=== PATIENT | female | born 1960 | race Caucasian/White ===

== ENCOUNTER 2019-04-29 13:18 | Inpatient (IN) ==
[2019-04-29 14:30] LABS: Basophils # (auto) 0.01 K/uL (0-0.2); Basophils % (auto) 0.2 %; Eosinophils # (auto) 0.11 K/uL (0-0.5); Eosinophils % (auto) 2.3 %; Hematocrit (blood only) 25.6 % (37-47); Hemoglobin 8.6 g/dL (12.0-16.0); Immature Granulocytes # (auto) 0.01 K/uL (0.00-0.02); Immature Granulocytes % (auto) 0.2 %; Lymphocytes % (auto) 14.4 %; Mean Corpuscular Hgb Conc 33.6 g/dL (32-36); Mean Corpuscular Volume 102.8 fL (80-100); Mean Platelet Volume 9.1 fL (7.4-10.4); Monocytes # (auto) 0.31 K/uL (0.11-0.59); Monocytes % (auto) 6.4 %; Neutrophils # (auto) 3.71 K/uL (1.4-6.5); Neutrophils % (auto) 76.5 %; Platelet Count 118 K/uL (130-400); RDW Coefficient of Variation 14.9 % (11.5-14.5); RDW Standard Deviation 55.4 fL (36.4-46.3); Red Blood Count 2.49 M/uL (4.2-5.4); White Blood Count 4.85 K/uL (4.8-10.8)
[2019-04-29 14:45] LABS: Est GFR (African American) 56.8; Potassium 4.1 mmol/L (3.5-5.1)
[2019-04-29 14:46] LABS: Albumin Level 3.5 gm/dl (3.4-5.0); BUN Creatinine Ratio 26.3 (10-20); Calcium 9.6 mg/dl (8.5-10.1); Creatinine Clr Calc Pharmacy 66.1 ml/min
[2019-04-29 14:48] LABS: Albumin Globulin Ratio 1.2 (0.9-2); Bilirubin,Total 0.3 mg/dl (0.2-1); Total Protein 6.5 gm/dl (6.4-8.2)
[2019-04-29 15:05] LABS: INR 1.1 (0.9-1.1); Partial Thromboplastin Ratio 1.1; Partial Thromboplastin Time 28.5 Seconds (21.0-31.0)
--- NOTE | 2019-04-29 15:33 | Ultrasound Report ---
ULTRASOUND BILATERAL LOWER EXTREMITY VENOUS CLINICAL HISTORY: Leg pain. COMPARISON STUDY: No priors. TECHNIQUE: Real-time, grayscale, and color Doppler sonography of the deep veins of the right and left lower extremity was performed from the inguinal crease to the calf. Compression and augmentation wer e utilized. FINDINGS: Right lower extremity: There is nearly occlusive deep venous thrombosis identified in the right commo n femoral vein. The superficial femoral and popliteal veins are patent and normally compressible. The greater saphenous vein and the profunda femoris vein at the junction with the common femoral vein ar e clear. The visualized calf veins are patent. Left lower extremity: There is no sonographic evidence of left lower extremity deep venous thrombosis . The common femoral, superficial femoral, and popliteal veins are patent and normally compressible. The greater saphenous vein and the profunda femoris vein at the junction with the common femoral vein are clear. The visualized calf veins are patent. IMPRESSION: 1. There is nearly occlusive deep venous thrombosis identified in the right common femoral vein. 2. The remaining deep veins of the right lower extremity are clear. 3. There is no sonographic evidence of deep venous thrombosis in the left lower extremity. Electronically signed by: Tra Robertson M.D. 04/29/2019 3:32 PM
--- NOTE | 2019-04-29 17:01 | History & Physical Report ---
Date of Service April 29, 2019 Assessment & Plan (1) DVT of proximal leg (deep vein thrombosis): This is a 58-year-old female who has a significant past medical history of stage IIIa grade 2 endometrial cancer status post TAHBSO 04/07/18 and chemo/XRT therapy ending 12/2018, HTN, HLD, Depression, CKD 3, pancytopenia who presents to [facility] ED secondary to abnormal CT scan. Outpt CT: A long filling defect in the mid to distal right external iliac vein with mild dilation of the vein extending to right common femoral vein and proximal deep femoral vein, concerning for deep venous thrombosis. Circumaortic left renal vein (In case an IVC filter is placed). admit to med/surg Risks and benefits were discussed regarding treatment options Initiate Lovenox 120mg Sq Q12hr - discussed with Dr. Tanner along with pt hematology Dr. Roth [facility] Dr. Tanner recommends checking Xa level in 1 week to see if level accumulating. She recommends if high consider reducing dosage of lovenox patient will need close follow up with her [employer] Dr. Roth to deter mine longterm treatment options Monitor H/H and PLT count closely given significant pancytopenia (2) Pancytopenia: secondary to chemotherapy pt off chemotherapy last given 12/2018 last transfusion of PRBC 6 weeks ago hx of 22 units of PRBC in past year secondary to pancytopenia follow H/H (3) HTN (hypertension): continue outpatient lisinopril/hctz Disposition: D/C to home when able Follow up: PCP Dr. Champion along with follow up [employer] Dr. Roth [facility] Patient was seen and examined in collaboration with Dr. Dobbins, please see addendum History of Present Illness Chief Complaint: Abnormal CT scan Primary Care Provider: Sakshi Lucia DO This is a 58-year-old female who has a significant past medical history of stage IIIa grade 2 endometrial cancer status post TAHBSO 04/07/18 and chemo/XRT therapy ending 12/2018, HTN, HLD, Depression, CKD 3, pancytopenia who presents to [facility] ED secondary to abnormal CT scan. Patient underwent 3 cycles of chemotherapy and developed febrile neutropenia along with severe anemia that required hospitalization at [place]. Since then she has had additional cycles of chemotherapy along with 25 pelvic radiation treatments. Her chemo ended 12/2018 due to complications. Today patient presented for outpatient surveillance CT scan of abdomen pelvis and chest. Findings consistent with mild filling defect in the mid to distal right external iliac vein with mild dilation of the vein extending to the right common femoral vein and proximal deep femoral vein concerning for DVT. Given these findings it was recommended to seek ED for evaluation and treatment. Patient is from [facility] and is currently in [place] visiting mother who was on hospice. She has noticed over the past week some increasing right ankle swelling and slight warmth but otherwise denies pain. Feels in her normal state of health. Denies fever, chills, sweats, lightheadedness, dizziness, chest pain, shortness of breath, hemoptysis, cough, nausea, vomiting, abdominal pain, change in bowel or urinary habits. Patient has developed pancytopenia secondary to chemotherapy. She has undergone 22 transfusions since June 2018. She denies any bleeding, hematochezia, melena. Pt states she has been traveling back and forth from [facility] to here because of visiting her mother. Denies Tobacco use. Allergies Allergy/AdvReac Type Severity Reaction Status Date / Time No Known Allergies Allergy Unverified 04/29/19 13:34 Home Medications Home Medications Medication Instructions Recorded Confirmed Type cyanocobalamin (vitamin B-12) 1,000 mcg PO QAM 04/29/19 04/29/19 History [Vitamin B-12] escitalopram oxalate 5 mg PO HS 04/29/19 04/29/19 History folic acid 1 mg PO QAM 04/29/19 04/29/19 History lisinopril-hydrochlorothiazide 2 tab PO QAM 04/29/19 04/29/19 History Past Med/Surg History Family History Mother Breast cancer Uterine cancer Father Coronary heart disease, Onset Age: 63 Diabetes Social History Preferred Language: Mongolian Communication Ability: Effective Beliefs That Will Affect Care: None marital status: / Current Living Situation: Family Current Living Situation Comment: daughter Other Information That Helps Us Care for You: No Feels Safe at Home: Yes Safety Concerns: Feels Safe At This Time Smoking Status: Never smoker Hx Alcohol Use: No Hx Substance Use: No Review of Systems Review of Systems: As noted per HPI, 10 systems reviewed and negative unless noted above. Physical Exam Physical Exam: Gen: WD/WN, F, morbidly obese, NAD, sitting up in bed, pleasant, conversing easily Head: Normocephalic, Atraumatic Eyes: Sclera normal, no conjunctival injection, PERRLA, EOMI ENT: Gross hearing intact, normal pharynx, mucous membranes moist Neck: supple, no adenopathy, No JVD, no bruit, Resp: Clear to auscultation b/l, no wheeze, rales, rhonchi. Normal insp/exp effort, no accessory muscle use CV: Regular rate, regular rhythm, no murmur, rub, gallop, or ectopy Abd: +BS x 4, obese abdomen, soft, nontender, nondistended Musculoskeletal: moves extremities active rom x 4, strength intact, good endo tech strength Extremities: Right lower extremity pretibial and ankle edema with surrounding erythema, warmth. No pain to palpation. No edema to left lower extremity. Bilateral pulses +2 and equal. Skin: warm, moist, no rash, negative turgor, cap refill < 2sec Neuro: Alert and oriented x 3, speech normal, good mood/affect, cran nerve 2-12 intact grossly : deferred Results & Data Vital Signs (Past 12 Hours) Vital Signs Temp Pulse Pulse Resp BP BP Pulse Ox 04/29/19 15:37 75 142/61 H 97 04/29/19 13:21 36.7 C 87 20 184/103 H 98 Laboratory Results Short CBC 04/29/19 Range/Units 13:55 WBC 4.85 (4.8-10.8) K/uL Hgb 8.6 L (12.0-16.0) g/dL Hct 25.6 L (37-47) % Plt Count 118 L (130-400) K/uL BMP 04/29/19 13:55 Sodium 143 Potassium 4.1 Chloride 111 H Carbon Dioxide 25 BUN 32 H Creatinine 1.23 H Glucose 94 Calcium 9.6 Liver Function 04/29/19 Range/Units 13:55 Total Bilirubin 0.3 (0.2-1) mg/dl AST 14 L (15-37) U/L ALT 25 (12-78) U/L Alkaline Phosphatase 93 (45-117) U/L Albumin 3.5 (3.4-5.0) gm/dl Diagnostic Findings CT Abd/Pelvis/Chest: IMPRESSION Chest: 1. A tiny pulmonary nodule in the lateral right upper lobe, not seen on the prior exam (2.5 mm axial image 36). Continued attention on the follow up studies suggested. 2. No enlarged thoracic lymph nodes. Abdomen/pelvis: 1. No findings to suggest metastatic disease in the abdomen or pelvis. 2. A long filling defect in the mid to distal right external iliac vein with mild dilation of the vein extending to right common femoral vein and proximal deep femoral vein, concerning for deep venous thrombosis. Circumaortic left renal vein (In case an IVC filter is placed). 3. Mild hepatomegaly and mild hepatic steatosis, stable. Mild splenomegaly, stable. 4. Other incidental findings as detailed above. RLE US: IMPRESSION: 1. There is nearly occlusive deep venous thrombosis identified in the right common femoral vein. 2. The remaining deep veins of the right lower extremity are clear. 3. There is no sonographic evidence of deep venous thrombosis in the left lower extremity. Code Status & VTE Plan Code Status Full Code VTE Prophylaxis Plan VTE Prophylaxis will be ordered: Yes Supervising Physician Co-Signing Physician Notes Patient is a 58-year-old female with history of endometrial cancer status post chemo and radiation therapy, CKD and other problems presents for evaluation and management of an abnormal CT abdomen pelvis which was done as outpatient. Patient was found to have mild filling defect in the mid to distal right external iliac origin with mild dilatation of the vein extending to the right common femoral vein and proximal deep femoral vein. Venous Doppler showed nearly occlusive deep vein thrombosis in the right common femoral vein. She reports associated mild swelling, erythema of the right lower extremity but ryan es any pain, fever. Also denies any chest pain, shortness of breath, dizziness, abdominal pain. Patient admits to traveling recently to visit her mother who is under hospice care currently. On exam patient is morbidly obese, no distress, normocephalic atraumatic, lungs are clear to auscultation, S1-S2, no murmur, abdomen soft nontender, grossly normal neurological focal deficits, right lower extremity swelling, erythema noted. Discussed with patient's oncologist Dr. Roth and Dr. Tanner. Patient denies any bleeding issues. Patient will be anticoagulated with therapeutic Lovenox. Monitor renal function. Plan to check Xa level in 1 week and consider adjusting Lovenox dose based on Xa levels. Monitor CBC given anemia, thrombocytopenia and multiple transfusions (which she attributes to chemotherapy but denies any bleeding issues) in the past. I personally reviewed the record. Patient is interviewed and examined at bedside. Patient's care is coordinated with Michelle Lloyd PA-C. Please refer to the documentation above for details of patient's presentation and for discussion of other issues.
--- NOTE | 2019-04-29 17:13 | Emergency Department Note ---
Entered by Elisha Becerril acting as a scribe for Ranjit Knapp MD History of Present Illness General Chief complaint: Leg Injury/Pain Stated complaint: BLOOD CLOT IN RIGHT LEG Source: patient Limitations: no limitations History of Present Illness Provider complaint: Blood clot in right leg Onset (ago): day(s) Location: lower extremity and right Radiation: non-radiation Pain Consistency: + constant Associated symptoms: + denies other symptoms; no chest pain and no shortness of breath The patient is a 58 year old female who presents to the ED with abnormal imaging done yesterday. She reports that she got her results from a CT scan done that showed a filling defect in the mid-distal right external iliac vein extending into the right leg. She reports a history of uterine cancer and states that she had the CT done yesterday as a follow-up scan for her history of cancer. The patient states that she is no longer on chemotherapy. She states that the DVT was found incidentally. She states that she did have a hysterectomy 1 year ago. The patient denies any bleeding issues, abdominal pain, chest pain, leg pain, and shortness of breath. She also denies recent long travel or surgeries and states that she does not smoke. The patient states that she had blood work done at [facility] yesterday and was reported to have a platelet count of 138,000 so reports that she does have some bruising. She denies a history of clots. Home Medications Home Medications Medication Instructions Recorded Confirmed Type cyanocobalamin (vitamin B-12) 1,000 mcg PO QAM 04/29/19 04/29/19 History [Vitamin B-12] escitalopram oxalate 5 mg PO HS 04/29/19 04/29/19 History folic acid 1 mg PO QAM 04/29/19 04/29/19 History lisinopril-hydrochlorothiazide 2 tab PO QAM 04/29/19 04/29/19 History Allergies Allergy/AdvReac Type Severity Reaction Status Date / Time No Known Allergies Allergy Unverified 04/29/19 13:34 Past Med/Surg History Social History Feels Safe at Home: Yes Smoking Status: Never smoker Review of Systems See HPI for pertinent positives & negatives. and A total of 10 systems reviewed and were otherwise negative Physical Exam Vital Signs Vital Signs - 24 hr 04/29/19 13:21 04/29/19 15:37 Temperature 36.7 C Temperature Source Oral Sepsis Recent Fever Within 48 Hours No Sepsis New/Unexplained Change in Mental Status No Sepsis Action Taken by Nursing No Action Required Pulse Rate 87 Pulse Rate [Right Finger] 75 Pulse Rhythm [Right Finger] Regular Pulse Strength [Right Finger] Normal Respiratory Rate 20 Respiratory Effort / Characteristics Non-Labored Spontaneous Respiratory Depth Normal Normal Respiratory Pattern Regular Blood Pressure 184/103 H Blood Pressure [Left Arm] 142/61 H Blood Pressure Mean 130 Blood Pressure Mean [Left Arm] 88 Blood Pressure Position [Left Arm] Lying Pulse Oximetry 98 97 Oxygen Delivery Method Room Air Room Air Constitutional: Vital signs reviewed. Eyes: Pupils are equal round reactive to light. Conjunctiva are noninjected. ENT: Pharynx is clear without erythema or exudate. Mucous membranes are moist. Neck supple without meningeal signs. Respiratory: Clear to auscultation bilaterally. Breath sounds are equal bilaterally. Cardiovascular: Regular rate and rhythm. No rubs or gallops. GI: Soft, nondistended and nontender. Bowel sounds are present. Musculoskeletal: Edema to her right leg which is larger than the left. No lower extremity tenderness. Integumentary: No cyanosis. Neurological: The patient is awake and alert. No focal deficits. Psychiatric: Normal affect. Course 1340: The patient was evaluated in room C10. A history and physical were performed. 1545: I discussed the patient's case with Michelle Archer, admitting to Dr. Dobbins, who will evaluate the patient for further management. 1548: I updated the patient who verbalized agreement and understanding of the treatment plan. Consultations Consultation #1: Michelle Archer Time: 15:45 Medical Decision Making Differential Diagnosis Differentials include DVT, carcinoma, hypercoagulable state, thrombocytopenia, and anemia. Medical Records Attestation: I reviewed the patient's medical records. Home Medications Current Medication List: was personally reviewed by me Laboratory Data Attestation: I reviewed the patient's lab results. Result diagrams: 04/29/19 13:55 04/29/19 13:55 Lab Results 04/29/19 04/29/19 04/29/19 Range/Units 13:55 13:55 13:55 WBC 4.85 (4.8-10.8) K/uL RBC 2.49 L (4.2-5.4) M/uL Hgb 8.6 L (12.0-16.0) g/dL Hct 25.6 L (37-47) % MCV 102.8 H (80-100) fL MCH 34.5 H (25-34) pg MCHC 33.6 (32-36) g/dL RDW Std Deviation 55.4 H (36.4-46.3) fL RDW Coeff of Shukri 14.9 H (11.5-14.5) % Plt Count 118 L (130-400) K/uL MPV 9.1 (7.4-10.4) fL Immature Gran % (Auto) 0.2 % Neut % (Auto) 76.5 % Lymph % (Auto) 14.4 % [place] % (Auto) 6.4 % Eos % (Auto) 2.3 % Baso % (Auto) 0.2 % Immature Gran # (Auto) 0.01 (0.00-0.02) K/uL Neut # (Auto) 3.71 (1.4-6.5) K/uL Lymph # (Auto) 0.70 L (1.2-3.4) K/uL [place] # (Auto) 0.31 (0.11-0.59) K/uL Eos # (Auto) 0.11 (0-0.5) K/uL Baso # (Auto) 0.01 (0-0.2) K/uL PT 11.0 (9.0-12.0) Seconds INR 1.1 (0.9-1.1) APTT 28.5 (21.0-31.0) Seconds PTT Ratio 1.1 Sodium 143 (136-145) mmol/L Potassium 4.1 (3.5-5.1) mmol/L Chloride 111 H (98-107) mmol/L Carbon Dioxide 25 (21-32) mmol/L Anion Gap 8.0 (3-11) BUN 32 H (7-18) mg/dl Creatinine 1.23 H (0.6-1.2) mg/dl Est Cr Clr Drug Dosing 66.1 ml/min Est GFR ( Amer) 56.8 Est GFR (Non-Af Amer) 49.0 BUN/Creatinine Ratio 26.3 H (10-20) Glucose 94 (70-99) mg/dl Calcium 9.6 (8.5-10.1) mg/dl Total Bilirubin 0.3 (0.2-1) mg/dl AST 14 L (15-37) U/L ALT 25 (12-78) U/L Alkaline Phosphatase 93 (45-117) U/L Total Protein 6.5 (6.4-8.2) gm/dl Albumin 3.5 (3.4-5.0) gm/dl Globulin 3.0 (2.5-4.0) gm/dl Albumin/Globulin Ratio 1.2 (0.9-2) Imaging Data Radiologist's Impression: Radiology results as stated below per my review and the radiologist's interpretation: ULTRASOUND BILATERAL LOWER EXTREMITY VENOUS CLINICAL HISTORY: Leg pain. COMPARISON STUDY: No priors. TECHNIQUE: Real-time, grayscale, and color Doppler sonography of the deep veins of the right and left lower extremity was performed from the inguinal crease to the calf. Compression and augmentation were utilized. FINDINGS: Right lower extremity: There is nearly occlusive deep venous thrombosis identified in the right common femoral vein. The superficial femoral and popliteal veins are patent and normally compressible. The greater saphenous vein and the profunda femoris vein at the junction with the common femoral vein are clear. The visualized calf veins are patent. Left lower extremity: There is no sonographic evidence of left lower extremity deep venous thrombosis. The common femoral, superficial femoral, and popliteal veins are patent and normally compressible. The greater saphenous vein and the profunda femoris vein at the junction with the common femoral vein are clear. The visualized calf veins are patent. IMPRESSION: 1. There is nearly occlusive deep venous thrombosis identified in the right common femoral vein. 2. The remaining deep veins of the right lower extremity are clear. 3. There is no sonographic evidence of deep venous thrombosis in the left lower extremity. Electronically signed by: Tra Robertson M.D. 04/29/2019 3:32 PM Blood Pressure Blood Pressure Findings: Elevated blood pressure Blood Pressure Disposition: Referred to patients primary care provider DRE Narrative I did evaluate the patient as noted above. IV access was established. 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 . I did order and review the patient's blood work as noted in the electronic medical record. She has a hemoglobin 8.6. She does state that on Friday her hemoglobin was over 9. Her platelet count is 118. I did order a Doppler ultrasound of the lower extremities. I did review the images myself as well as the radiology report as described above. She does have a near occlusive right common femoral vein DVT. I did discuss the test results with the patient. I did recommend hospitalization. I did feel an IVC filter should be a consideration. I did discuss the case with the hospitalist and onsite case manager. Impression & Plan Right leg DVT, Thrombocytopenia, Anemia : Right leg DVT Qualifiers: Affected thrombotic vein of extremity: iliac Chronicity: acute Qualified Code(s): I82.421 - Acute embolism and thrombosis of right iliac vein Anemia Qualifiers: Anemia type: unspecified type Qualified Code(s): D64.9 - Anemia, unspecified The scribe's documentation has been prepared under my direction and personally reviewed by me in its entirety. I confirm that the note above accurately re flects all work, treatment, procedures, and medical decision making performed by me.
[2019-04-29] MEDS ORDERED: ACETAMINOPHEN 325 MG TAB PO PRN (17:49)
[2019-04-29] MEDS ORDERED: POLYETHYLENE (MIRALAX) 17 GM PACK PO PRN (17:49)
[2019-04-29] MEDS ORDERED: ONDANSETRON INJ 2 MG/ML 2 ML VIAL IV PRN (17:49)
[2019-04-29] MEDS ORDERED: ALUMINUM/MAGNESIUM SUSP 30 ML UDC PO PRN (17:49)
[2019-04-29] MEDS ORDERED: MAGNESIUM HYDROXIDE SUSP 30 ML UDC PO PRN (17:49)
[2019-04-29] MEDS: ENOXAPARIN INJ 120 MG/0.8 ML SYR SQ SCH (18:51)
[2019-04-29] MEDS ORDERED: ESCITALOPRAM OXALATE 10 MG TAB PO SCH (21:00)
[2019-04-29] MEDS ORDERED: HEPARIN 100 UNIT/ML 5ML FLUSH FLUSH PRN (23:05)
[2019-04-30] MEDS: ENOXAPARIN INJ 120 MG/0.8 ML SYR SQ SCH ×2 (06:43→16:19)
[2019-04-30 08:04] LABS: Hematocrit (blood only) 24.7 % (37-47); Hemoglobin 8.2 g/dL (12.0-16.0); Mean Corpuscular Hgb Conc 33.2 g/dL (32-36); Mean Corpuscular Volume 103.3 fL (80-100); RDW Coefficient of Variation 14.9 % (11.5-14.5); RDW Standard Deviation 55.7 fL (36.4-46.3); Red Blood Count 2.39 M/uL (4.2-5.4); White Blood Count 3.94 K/uL (4.8-10.8)
[2019-04-30 08:35] LABS: Mean Platelet Volume 8.8 fL (7.4-10.4); Platelet Count 98 K/uL (130-400); Platelet Estimate Normal (Normal)
[2019-04-30 08:36] LABS: BUN Creatinine Ratio 21.8 (10-20); Calcium 9.2 mg/dl (8.5-10.1); Creatinine Clr Calc Pharmacy 61.2 ml/min; Est GFR (African American) 51.7; Est GFR (Non-African American) 44.6; Potassium 4.2 mmol/L (3.5-5.1)
[2019-04-30] MEDS ORDERED: CYANOCOBALAMIN 500 MCG TABLET (VITAMIN B-12) PO SCH (09:00)
[2019-04-30] MEDS ORDERED: FOLIC ACID 1 MG TAB PO SCH (09:00)
[2019-04-30] MEDS ORDERED: LISINOPRIL/HCTZ 20/12.5MG 1 TAB TAB PO SCH (09:00)
--- NOTE | 2019-04-30 15:28 | Hospitalist Progress Note ---
Date of Service Delayed entry Date of service noted below April 30, 2019 Assessment & Plan (1) DVT of proximal leg (deep vein thrombosis): This is a 58-year-old female who has a significant past medical history of stage IIIa grade 2 endometrial cancer status post TAHBSO 04/07/18 and chemo/XRT therapy ending 12/2018, HTN, HLD, Depression, CKD 3, pancytopenia who presents to [facility] ED secondary to abnormal CT scan. Outpt CT: A long filling defect in the mid to distal right external iliac vein with mild dilation of the vein extending to right common femoral vein and proximal deep femoral vein, concerning for deep venous thrombosis. Circumaortic left renal vein (In case an IVC filter is placed). Doppler ultrasound: IMPRESSION: 1. There is nearly occlusive deep venous thrombosis identified in the right common femoral vein. 2. The remaining deep veins of the right lower extremity are clear. 3. There is no sonographic evidence of deep venous thrombosis in the left lower extremity. Admitting team discussed case with patient's production underwriter/oncologist Dr. Loco hirsch Recommend to start Lovenox 120 mg subcutaneous every 12 hours Tolerated well, no signs of bleeding On discharge day, discussed case again with Dr. Roth He recommends discharge patient on Lovenox 120 mg of cutaneous every 12 hours Check factor X a level in 1 week, patient prefers to have this drawn in [facility] clinic, messaged Pharmacist Blanca Mckoy, signed out patient and they will ff up with the patient re: bloodwork Follow-up with Dr. Roth in 1 week Monitor CBC given patient's pancytopenia (2) Pancytopenia: secondary to chemotherapy pt off chemotherapy last given 12/2018 last transfusion of PRBC 6 weeks ago hx of 22 units of PRBC in past year secondary to pancytopenia H&H stable Monitor CBC closely as an outpatient (3) HTN (hypertension): continue outpatient lisinopril/hctz Disposition: D/C to home Follow-up with PCP in 1 week Follow-up with production underwriter/oncologist Dr. Roth 1 week Factor X a level in 1 week care of [facility] [place] Case discussed with patient in detail and at length She is comfortable with administration of Lovenox at home She is agreeable and understanding comfortable plan of care Subjective Follow-up for right lower extremity DVTs Seen resting in bed, comfortable, in good spirits Denies leg pain, shortness of breath, chest pain No bleeding Denies other symptoms States she is ready would like to be discharged today Review of Systems Review of Systems: All systems reviewed & are unremarkable except as noted in HPI & below Physical Exam Physical Exam: General- oriented x 3, not in distress, speaks in sentences with no effort or accessory muscle use Head- atraumatic Eyes- PERRL, EOMI, anicteric ENT- oropharynx clear Neck- supple, no JVD, no adenopathy, no thyromegaly; carotids +2/2, no bruits appreciated Lungs- clear to auscultation bilaterally, no rales/wheezes Heart- normal rate, regular rhythm; no murmur, no gallop, no rub appreciated Abdomen- normal bowel sounds, nondistended, soft, nontender, no masses or hepatosplenomegaly Extremities-mild edema of the right lower extremity erythema, no tenderness Left lower extremity essentially normal Neuro- alert, oriented x 3; CN 2-12 grossly intact; motor 5/5 bilaterally;sensation 100% on all extremities; no other gross focal neurologic deficits Skin- warm & dry Results & Data Vital Signs (Past 12 Hours) Vital Signs Temp Pulse Resp BP Pulse Ox 04/30/19 07:50 36.5 C 72 16 118/70 94 Laboratory Results All noted and reviewed
--- NOTE | 2019-05-02 16:58 | Discharge Summary ---
Date of Service May 02, 2019 Admission HPI Per Admitting Provider This is a 58-year-old female who has a significant past medical history of stage IIIa grade 2 endometrial cancer status post TAHBSO 04/07/18 and chemo/XRT therapy ending 12/2018, HTN, HLD, Depression, CKD 3, pancytopenia who presents to [facility] ED secondary to abnormal CT scan. Patient underwent 3 cycles of chemotherapy and developed febrile neutropenia along with severe anemia that required hospitalization at [place]. Since then she has had additional cycles of chemotherapy along with 25 pelvic radiation treatments. Her chemo ended 12/2018 due to complications. Today patient presented for o utpatient surveillance CT scan of abdomen pelvis and chest. Findings consistent with mild filling defect in the mid to distal right external iliac vein with mild dilation of the vein extending to the right common femoral vein and proximal deep femoral vein concerning for DVT. Given these findings it was recommended to seek ED for evaluation and treatment. Patient is from [facility] and is currently in [place] visiting mother who was on hospice. She has noticed over the past week some increasing right ankle swelling and slight warmth but otherwise denies pain. Feels in her normal state of health. Denies fever, chills, sweats, lightheadedness, dizziness, chest pain, shortness of breath, hemoptysis, cough, nausea, vomiting, abdominal pain, change in bowel or urinary habits. Patient has developed pancytopenia secondary to chemotherapy. She has undergone 22 transfusions since June 2018. She denies any bleeding, hematochezia, melena. Pt states she has been traveling back and forth from [facility] to here because of visiting her mother. Denies Tobacco use. Admission Exam Per Admitting Provider Gen: WD/WN, F, morbidly obese, NAD, sitting up in bed, pleasant, conversing easily Head: Normocephalic, Atraumatic Eyes: Sclera normal, no conjunctival injection, PERRLA, EOMI ENT: Gross hearing intact, normal pharynx, mucous membranes moist Neck: supple, no adenopathy, No JVD, no bruit, Resp: Clear to auscultation b/l, no wheeze, rales, rhonchi. Normal insp/exp effort, no accessory muscle use CV: Regular rate, regular rhythm, no murmur, rub, gallop, or ectopy Abd: +BS x 4, obese abdomen, soft, nontender, nondistended Musculoskeletal: moves extremities active rom x 4, strength intact, good radio frequency design engineer strength Extremities: Right lower extremity pretibial and ankle edema with surrounding erythema, warmth. No pain to palpation. No edema to left lower extremity. Bilateral pulses +2 and equal. Skin: warm, moist, no rash, negative turgor, cap refill < 2sec Neuro: Alert and oriented x Principal Diagnosis RIGHT COMMON FEMORAL VEIN DVT Discharge Exam General- oriented x 3, not in distress, speaks in sentences with no effort or accessory muscle use Head- atraumatic Eyes- PERRL, EOMI, anicteric ENT- oropharynx clear Neck- supple, no JVD, no adenopathy, no thyromegaly; carotids +2/2, no bruits appreciated Lungs- clear to auscultation bilaterally, no rales/wheezes Heart- normal rate, regular rhythm; no murmur, no gallop, no rub appreciated Abdomen- normal bowel sounds, nondistended, soft, nontender, no masses or hepatosplenomegaly Extremities-mild edema of the right lower extremity erythema, no tenderness Left lower extremity essentially normal Neuro- alert, oriented x 3; CN 2-12 grossly intact; motor 5/5 bilaterally;sensation 100% on all extremities; no other gross focal neurologic deficits Skin- warm & dry Discharge Data Allergies Allergy/AdvReac Type Severity Reaction Status Date / Time No Known Allergies Allergy Unverified 04/29/19 13:34 Consultations 04/29/19 15:51 ED Decision to Admit Stat Ordered Studies 04/29/19 13:44 US venous doppler LE Stat Hospital Course (1) DVT of proximal leg (deep vein thrombosis): This is a 58-year-old female who has a significant past medical history of stage IIIa grade 2 endometrial cancer status post TAHBSO 04/07/18 and chemo/XRT therapy ending 12/2018, HTN, HLD, Depression, CKD 3, pancytopenia who presents to [facility] ED secondary to abnormal CT scan. Outpt CT: A long filling defect in the mid to distal right external iliac vein with mild dilation of the vein extending to right common femoral vein and proximal deep femoral vein, concerning for deep venous thrombosis. Circumaortic left renal vein (In case an IVC filter is placed). Doppler ultrasound: IMPRESSION: 1. There is nearly occlusive deep venous thrombosis identified in the right common femoral vein. 2. The remaining deep veins of the right lower extremity are clear. 3. There is no sonographic evidence of deep venous thrombosis in the left lower extremity. Admitting team discussed case with patient's assessment manager/oncologist Dr. Geo briggs Recommend to start Lovenox 120 mg subcutaneous every 12 hours Tolerated well, no signs of bleeding On discharge day, discussed case again with Dr. Roth He recommends discharge patient on Lovenox 120 mg of cutaneous every 12 hours Check factor X a level in 1 week, patient prefers to have this drawn in [facility], messaged Pharmacist Blanca Mckoy, signed out patient and they will ff up with the patient re: bloodwork Follow-up with Dr. Roth in 1 week Monitor CBC given patient's pancytopenia (2) Pancytopenia: secondary to chemotherapy pt off chemotherapy last given 12/2018 last transfusion of PRBC 6 weeks ago hx of 22 units of PRBC in past year secondary to pancytopenia H&H stable Monitor CBC closely as an outpatient (3) HTN (hypertension): continue outpatient lisinopril/hctz Disposition: D/C to home Follow-up with PCP in 1 week Follow-up with assessment manager/oncologist Dr. Roth 1 week Factor X a level in 1 week care of [facility] Case discussed with patient in detail and at length She is comfortable with administration of Lovenox at home She is agreeable and understanding comfortable plan of care Total Time Total Time Spent Total Time Spent (In Minutes): 40 minutes Discharge Plan Discharge Items Patient Disposition: Home - Self-Care Reason For Visit: DVT Discharge Diagnosis: Deep venous thrombosis, Right common femoral vein Discharge Goals: Diagnostic testing and Therapeutic intervention Activity: As commented below Activity Comment: No heavy exertion until reevaluation by primary care physician or oncologis Lifting: Wait until after follow-up appointment Exercise/Sports: Wait until after follow-up appointment Driving/Machine Use Comment: No driving until reevaluated by primary care physician or oncologist Non-emergency contact: Primary Care Provider and Oncologist Call non-emergency contact if: you have any medication questions and you have a fever Follow-up/Referrals: Annika Lucia DO [Primary Care Provider] - Diet: Heart Healthy Addtl Provider Instructions: Follow-up with Dr. Roth in 1 week. Follow-up with primary care physician in about 2 weeks time. The [facility] [address] [facility] will be calling you regarding instructions for blood work scheduled 1 week from today. Their office number is [phone]. If you experience any chest pain, shortness of breath or changes with your breathing, please proceed to the ER immediately for evaluation. If you have any head trauma, please proceed to the ER immediately for evaluation as well. Call your primary care physician or oncologist, or return to the ER if with increasing leg pain, swelling, redness, tenderness, Signs of minor bleeding. For major bleeding, call 911 or return to the ER Immediately. Stay well-hydrated, drink plenty of fluids. Prescriptions: New enoxaparin [Lovenox] 120 mg/0.8 mL Syringe 120 mg subcut Q12H 30 Days Qty: 48 RF: 1 Continued lisinopril-hydrochlorothiazide 20-12.5 mg tablet 2 tab PO QAM RF: 0 cyanocobalamin (vitamin B-12) [Vitamin B-12] 1,000 mcg Tablet 1,000 mcg PO QAM RF: 0 folic acid 1 mg tablet 1 mg PO QAM RF: 0 escitalopram oxalate 5 mg tablet 5 mg PO HS RF: 0 Stand-Alone Forms: [facility] Discharge Orders: Discharge Order (Routine); Ordered 04/30/19 Ordered By: Ta Ocampo Admission Data Admit Date/Time: 04/29/19 16:47 Attending Provider: Ta Ocampo Admit Provider: Edward Dobbins Primary Care Provider: Annika Lucia Other Providers: Edward Dobbins Service: Medical Other Interventions: Discharge Summary Assessment (RN) Last Done: 04/30/19 16:02 DC Date/Time DO NOT enter until pt leaves facility: 04/30/19 16:48
== END 2019-04-30 16:48 | disposition home or self-care (01) | DRG 299 ==
LOC: ED 13:18 → 4W 16:47